=== PATIENT | male | born 1995 | race African-American/Black ===

== ENCOUNTER 2017-09-16 19:22 | Emergency (ER) | payer OTHER ==
[2017-09-16] MEDS: ONDANSETRON 4 MG ORAL DISINTEGRATING TAB (S0181) PO (22:06)
[2017-09-16] MEDS: AUGMENTIN 875 MG TAB PO (22:07)
[2017-09-16] MEDS: IBUPROFEN 600 MG TAB PO (22:07)
== END 2017-09-16 22:11 | disposition home or self-care (01) ==
LOC: M ED 19:22
DX: J02.0 Streptococcal pharyngitis (principal)
CPT/HCPCS: 87880